=== PATIENT | female | born 1960 | race Caucasian/White ===

== ENCOUNTER → 2020-03-07 | Outpatient (CLI) | payer OTHER ==
[~2020-03-07] MED LIST: APIX2.5T PO; ASPI-515 PO; ATOR-2 PO; CEFD300C37 PO; FURO-92 PO; LISI-167 PO; WARF3TAB52 PO
== END | disposition home or self-care (01) ==
LOC: STAR 14:54
PROVIDERS: ATTEND Anesthesiology
DX: Z01.818 Encounter for other preprocedural examination (principal); Z11.59 Encounter for screening for other viral diseases
CPT/HCPCS: 36415; 87635

== ENCOUNTER 2020-03-10 07:57 | Day surgery (SDC) | payer OTHER ==
[~2020-03-10] VITALS: Ht 165.1 cm; Wt 103.9 kg
[2020-03-10] MEDS ORDERED: VISIPAQUE 320MG/ML, 50ML BOTTLE ONE (08:00)
[2020-03-10 08:35] VITALS: BP 108/74
[2020-03-10] MEDS ORDERED: [UNRECOGNIZED DRUG - OTHER] PO (08:44)
[2020-03-10] MEDS ORDERED: potassium PO (08:44)
[2020-03-10] MEDS ORDERED: vitamin e PO (08:44)
[2020-03-10] MEDS ORDERED: red yeast rice PO (08:44)
[2020-03-10] MEDS ORDERED: RIVA20TA PO (08:44)
[2020-03-10] MEDS ORDERED: D5%-0.45% NACL 1,000 ML IV SCH (09:00)
[2020-03-10 09:10] LABS: BASOPHILS # (AUTO) 0.02 x10^3/uL (0-0.1); BASOPHILS % (AUTO) 0 % (0-1); EOSINOPHILS # (AUTO) 0.16 x10^3/uL (0-0.4); EOSINOPHILS % (AUTO) 2 % (1-7); LYMPHOCYTES % (AUTO) 26 % (22-44); MD NO; MEAN CORPUSCULAR HEMOGLOBIN 31.5 pg (27.0-34.8); MEAN CORPUSCULAR HGB CONC 32.6 g/dL (32.4-35.8); MEAN CORPUSCULAR VOLUME 96.5 fL (80-100); MEAN PLATELET VOLUME 9.2 fL (7.4-10.4); MONOCYTES # (AUTO) 0.42 x10^3/uL (0.2-0.8); MONOCYTES % (AUTO) 6 % (2-9); NEUTROPHILS # (AUTO) 5.06 x10^3/uL (1.8-6.8); NEUTROPHILS % (AUTO) 66 % (42-75); PLATELET COUNT 195 x10^3/uL (130-400); RED BLOOD COUNT 5.44 x10^6/uL (3.82-5.3); RED CELL DISTRIBUTION WIDTH 13.9 % (9.6-15.2)
[2020-03-10 09:21] LABS: ALBUMIN 3.8 g/dL (3.4-5.0); ANION GAP 5 mmol/L (5-15); CALCIUM 9.1 mg/dL (8.5-10.1); CHLORIDE 106 mmol/L (98-107)
[2020-03-10] MEDS ORDERED: FENTANYL PF 100 MCG/2ML ONE (09:24)
[2020-03-10] MEDS ORDERED: HEPARIN 1,000 UNITS/ML, 10ML ONE (09:24)
[2020-03-10] MEDS ORDERED: PROTAMINE SULFATE 10 MG/ML, 25ML ONE (09:24)
[2020-03-10] MEDS ORDERED: MIDAZOLAM 1 MG/ML, 5ML ONE (09:24)
[2020-03-10] MEDS ORDERED: NALOXONE 1 MG/ML, 2ML ONE (09:24)
[2020-03-10] MEDS ORDERED: FLUMAZENIL 0.1 MG/1 ML, 5ML ONE (09:24)
[2020-03-10 09:27] LABS: ALANINE AMINOTRANSFERASE 14 U/L (12-78); ALKALINE PHOSPHATASE 92 U/L (45-117); BILIRUBIN,TOTAL 0.5 mg/dL (0.2-1.0); CREATININE 0.89 mg/dL (0.55-1.02); TOTAL PROTEIN 7.6 g/dL (6.4-8.2)
[2020-03-10] MEDS ORDERED: LIDOCAINE 1%, 10ML ONE (09:36)
== END 2020-03-10 14:00 | disposition home or self-care (01) ==
LOC: OUT 07:57
PROVIDERS: ATTEND Surgery
DX: I74.5 Embolism and thrombosis of iliac artery (principal); T82.856A Stenosis of peripheral vascular stent, initial encounter; I65.22 Occlusion and stenosis of left carotid artery; I82.411 Acute embolism and thrombosis of right femoral vein; I82.431 Acute embolism and thrombosis of right popliteal vein; I25.10 Atherosclerotic heart disease of native coronary artery without angina pectoris; I25.2 Old myocardial infarction; F41.9 Anxiety disorder, unspecified; D68.51 Activated protein C resistance; E66.9 Obesity, unspecified; Z68.37 Body mass index [BMI] 37.0-37.9, adult; Z79.01 Long term (current) use of anticoagulants; Z79.891 Long term (current) use of opiate analgesic; Z79.899 Other long term (current) drug therapy; Z87.891 Personal history of nicotine dependence; Z86.718 Personal history of other venous thrombosis and embolism; Z96.651 Presence of right artificial knee joint; Z98.1 Arthrodesis status; Z90.49 Acquired absence of other specified parts of digestive tract; Z98.890 Other specified postprocedural states; Z82.3 Family history of stroke; Z82.49 Family history of ischemic heart disease and other diseases of the circulatory system; Z83.2 Family history of diseases of the blood and blood-forming organs and certain disorders involving the immune mechanism; Z84.1 Family history of disorders of kidney and ureter; Y83.8 Other surgical procedures as the cause of abnormal reaction of the patient, or of later complication, without mention of misadventure at the time of the procedure
CPT/HCPCS: 36221; 36415; 37220; 75625; 80053; 85025; 99156; 99157; C1725; C1751; C1760; C1769; C1894; J1644; J2250; J3010; Q9967; 75630; J2720; J2310

== ENCOUNTER 2020-06-02 12:14 | Day surgery (SDC) | payer OTHER ==
[2020-05-31 16:38] LABS: BASOPHILS % (AUTO) 2 % (0-1); EOSINOPHILS % (AUTO) 2 % (1-7); LYMPHOCYTES % (AUTO) 27 % (22-44); MEAN CORPUSCULAR HEMOGLOBIN 32.4 pg (27.0-34.8); MEAN CORPUSCULAR HGB CONC 33.4 g/dL (32.4-35.8); MEAN PLATELET VOLUME 10.5 fL (7.4-10.4); MONOCYTES % (AUTO) 6 % (2-9); NEUTROPHILS % (AUTO) 63 % (42-75); PLATELET COUNT 185 x10^3/uL (130-400); RED BLOOD COUNT 5.34 x10^6/uL (3.82-5.3); RED CELL DISTRIBUTION WIDTH 13.8 % (9.6-15.2)
[2020-05-31 16:49] LABS: ALANINE AMINOTRANSFERASE 12 U/L (12-78); ALBUMIN 3.7 g/dL (3.4-5.0); CALCIUM 9.2 mg/dL (8.5-10.1)
[2020-05-31 16:52] LABS: ALKALINE PHOSPHATASE 103 U/L (45-117); BILIRUBIN,TOTAL 0.5 mg/dL (0.2-1.0); CREATININE 0.96 mg/dL (0.55-1.02); TOTAL PROTEIN 7.6 g/dL (6.4-8.2)
[2020-05-31 17:06] LABS: ANION GAP 3 mmol/L (5-15); CHLORIDE 104 mmol/L (98-107)
[2020-05-31 18:42] LABS: MD MORPH REVIEW ONLY
[2020-05-31 18:43] LABS: <PLATELET ESTIMATE> ADEQUATE; <RBC MORPHOLOGY> NORMAL; GIANT PLATELETS 1+
[~2020-06-02] VITALS: Ht 165.1 cm; Wt 104.6 kg
[~2020-06-02 12:14] MED LIST changes: +FURO40TA6 PO; +KAVA200C PO; +LOVA10TA PO; +POTA20TA6 PO; +RED600CA2 PO; +RIVA20TA PO; +VISIPAQUE 270 MG/ML, 50ML BOTTLE ONE; +VITA100T4 PO; +[UNRECOGNIZED DRUG - OTHER] PO; +potassium PO; +red yeast rice PO; +vitamin e PO
[2020-06-02 12:40] VITALS: BP 107/69
[2020-06-02] MEDS ORDERED: D5%-0.45% NACL 1,000 ML IV STA (12:41)
[2020-06-02 13:17] LABS: INTERNATIONAL NORMALIZED RATIO 0.97 (0.93-1.1); PROTHROMBIN TIME 10.3 Seconds (9.6-11.5)
[2020-06-02] MEDS ORDERED: D5%-0.45% NACL 1,000 ML IV SCH (13:30)
[2020-06-02] MEDS ORDERED: FENTANYL PF 100 MCG/2ML ONE (13:48)
[2020-06-02] MEDS ORDERED: NALOXONE 1 MG/ML, 2ML ONE (13:49)
[2020-06-02] MEDS ORDERED: FLUMAZENIL 0.1 MG/1 ML, 5ML ONE (13:49)
[2020-06-02] MEDS ORDERED: HEPARIN 5,000 UNITS/ML, 1ML ONE (13:49)
[2020-06-02] MEDS ORDERED: MIDAZOLAM 1 MG/ML, 5ML ONE (13:49)
[2020-06-02] MEDS ORDERED: LIDOCAINE 1%, 10ML ONE (14:05)
[2020-06-02] MEDS ORDERED: HEPARIN 1,000 UNITS/ML, 10ML ONE (14:36)
[2020-06-02] MEDS ORDERED: PROTAMINE SULFATE 10 MG/ML, 25ML ONE (14:36)
== END 2020-06-02 17:45 | disposition home or self-care (01) ==
LOC: OUT 12:14
PROVIDERS: ATTEND Surgery
DX: I77.1 Stricture of artery (principal); I70.213 Atherosclerosis of native arteries of extremities with intermittent claudication, bilateral legs; D68.51 Activated protein C resistance; I25.10 Atherosclerotic heart disease of native coronary artery without angina pectoris; I25.2 Old myocardial infarction; F41.9 Anxiety disorder, unspecified; E66.9 Obesity, unspecified; Z68.37 Body mass index [BMI] 37.0-37.9, adult; Z79.01 Long term (current) use of anticoagulants; Z79.891 Long term (current) use of opiate analgesic; Z79.899 Other long term (current) drug therapy; Z98.1 Arthrodesis status; Z96.651 Presence of right artificial knee joint; Z98.890 Other specified postprocedural states; Z87.891 Personal history of nicotine dependence; Z83.2 Family history of diseases of the blood and blood-forming organs and certain disorders involving the immune mechanism; Z82.49 Family history of ischemic heart disease and other diseases of the circulatory system; Z82.3 Family history of stroke
CPT/HCPCS: 36415; 37236; 75710; 80053; 85025; 85610; 85730; 99156; 99157; C1876; C1894; J1644; J2250; J2720; J3010; Q9966; J2310